=== PATIENT | male | born 1975 | race African-American/Black ===

== ENCOUNTER 2017-10-06 09:46 | Emergency (ER) | payer SELFPAY ==
[2017-10-06] MEDS: IBUPROFEN 800 MG TAB PO (10:04)
== END 2017-10-06 11:21 | disposition home or self-care (01) ==
LOC: FTE 09:46
DX: M79.671 Pain in right foot (principal); M25.571 Pain in right ankle and joints of right foot
CPT/HCPCS: 73610; 73610-RT; 99283-25